=== PATIENT | female | born 1975 | race Caucasian/White ===

== ENCOUNTER 2018-03-19 08:58 | Outpatient (CLI) | payer MEDICARE, MEDICAID ==
[~2018-03-19] VITALS: Ht 154.9 cm; Wt 121.1 kg
[~2018-03-19 08:58] MED LIST: CHOL10003 PO; FERR325T14 PO; FOLI1TAB16 PO; LEVO150T5 PO; LURA20TA PO; MELA3TAB2 PO; METO5TAB PO; PANT20TA2 PO; PRED5TAB PO; ROPI1TAB PO; TERA10CA3 PO; TRAZ-85 PO
[2018-03-19 09:30] VITALS: BP 123/64
[2018-03-19 09:38] LABS: BASO # 0.1 x10^3/uL (0.0-0.2); BASO % 1 % (0-3); EOS % 11 % (0-3); HEMATOCRIT 27.1 % (36.0-47.0); HEMOGLOBIN 8.9 g/dL (12.0-15.5); LYMPH # 1.5 x10^3/uL (1.0-4.8); LYMPH % 16 % (24-48); MEAN CORPUSCULAR HEMOGLOBIN 28 pg (25-35); MEAN CORPUSCULAR HGB CONC 33 g/dL (31-37); MEAN CORPUSCULAR VOLUME 85 fL (79-100); MONO # 0.6 x10^3/uL (0.0-1.1); MONO % 7 % (0-9); NEUT % 65 % (31-73); PLATELET COUNT 251 x10^3/uL (140-400); RED BLOOD COUNT 3.19 x10^6/uL (3.50-5.40); RED CELL DISTRIBUTION WIDTH 18.6 % (11.5-14.5); WHITE BLOOD COUNT 9.2 x10^3/uL (4.0-11.0)
[2018-03-19 10:04] LABS: PROTHROMBIN TIME PATIENT 13.3 SEC (11.7-14.0)
[2018-03-19 10:55] VITALS: BP 123/81
--- NOTE | 2018-03-19 15:13 | RAD ---
Fluoroscopically guided removal of right internal jugular tunnel dialysis catheter 03/19/2018 Indication: The patient no longer requires dialysis Discussion: The risks and benefits of the procedure were discussed the patient. Informed consent was obtained. Timeout procedure was performed. The right chest and neck including the pre-existing catheter were prepped and draped using sterile barrier technique. Fluoroscopic evaluation demonstrates the pre-existing catheter to be acceptable in position. The catheter was removed with traction. Manual pressure was held. Sterile dressings were applied. Fluoroscopic evaluation and the catheter inspection confirm complete removal. Total fluoroscopy time 0.1 MINS DOSE AREA PRODUCT: [id number] Impression: Removal of right internal jugular tunnel dialysis catheter
== END 2018-03-19 11:30 | disposition home or self-care (01) ==
LOC: INTRAD 08:58
PROVIDERS: ATTEND Internal Medicine
DX: Z45.2 Encounter for adjustment and management of vascular access device (principal); Z79.01 Long term (current) use of anticoagulants; Z79.899 Other long term (current) drug therapy
CPT/HCPCS: 36415; 36589; 77001; 85025; 85610; 85730